=== PATIENT | female | born 1930 | race Caucasian/White ===

== ENCOUNTER 2017-03-08 11:54 | Emergency (ER) | payer MEDICARE ==
[~2017-03-08] VITALS: Ht 162.6 cm; Wt 70.0 kg
[2017-03-08 12:08] VITALS: BP 140/65; PULSE 74; RESP 18; TEMP 97.7; O2SAT 95
--- NOTE | 2017-03-08 12:51 | PD ---
HPI Chief Complaint: Fall Time Seen by Provider: 12:35 Travel History International Travel<30 days: No Contact w/Intl Traveler<30days: No Traveled to known affect area: No History of Present Illness HPI Patient is an 86-year-old female presenting to the emergency room for evaluation of a head injury after she sustained a mechanical fall around 9:30 this morning. Patient was attempting to open the blinds in her apartment, she left her walker several feet from her and walked to the window when she turned around she lost her balance and fell and hit her head. Patient pushed her life alert button to notify staff. Patient states her head is sore but denies any significant headache or visual changes. She currently lives at [facility] in the assisted living section. Her past medical history significant for hypertension, GERD, arthritis, osteoporosis, depression, hypothyroidism and Alzheimer's dementia. PFS Past Medical History Alzheimer's Disease: Yes Arthritis: Yes Depression: Yes High Cholesterol: Yes Diminished Hearing: No GERD: Yes Hypertension: Yes Medical other: Yes (osteoporosis) Immunizations Current: No Thyroid Disease: Yes (HYPOTHYROID ) Tetanus Vaccination: Unknown Influenza Vaccination: No ?: Not Social History Alcohol Use: No Tobacco Use: No Substance Use: No Allergies-Medications (Allergen,Severity, Reaction): Coded Allergies: No Known Allergies (Verified Allergy, Unknown, 03/08/17) Review of Systems Except as stated in HPI: all other systems reviewed are Neg Eyes: No: Blurred Vision, Visual changes HENT: Positive: Headaches Cardiovascular: No: Chest Pain or Discomfort Respiratory: No: Shortness of Breath Gastrointestinal: No: Abdominal Pain Genitourinary: No: Dysuria Musculoskeletal: No: Myalgias Neurologic: No: Weakness, Dizziness, Focal Abnormalities, Change in Mentation Physical Exam Narrative GENERAL: Well-developed, well-nourished, alert elderly female. Resting comfortably in no acute distress. Family at bedside. SKIN: Warm and dry. No rash, contusions, obvious lesions noted. HEAD: Atraumatic. Normocephalic. EYES: Pupils equal and round. No scleral icterus. No injection or drainage. Extra Ocular movements are intact. ENT: No nasal bleeding or discharge. Mucous membranes pink and moist. NECK: Trachea midline. No JVD. No cervical spine tenderness noted on exam. CARDIOVASCULAR: Regular rate and rhythm. 3/6 systolic murmur RESPIRATORY: No accessory muscle use. Clear to auscultation. Breath sounds equal bilaterally. GASTROINTESTINAL: Abdomen soft, non-tender, nondistended. Hepatic and splenic margins not palpable. MUSCULOSKELETAL: Extremities without clubbing, cyanosis, or edema. No obvious deformities. NEUROLOGICAL: Awake and alert. No obvious cranial nerve deficits. Motor grossly within normal limits. Five out of 5 muscle strength in the arms and legs. Normal speech. PSYCHIATRIC: Appropriate mood and affect; insight and judgment normal. Data Data Last Documented VS Vital Signs Date Time Temp Pulse Resp B/P (MAP) Pulse Ox O2 Delivery O2 Flow Rate FiO2 03/08/17 12:08 97.7 74 18 140/65 (90) 95 03/08/17 12:08 Room Air Orders Orders Ct Brain W/O Iv Contrast(Rout) (03/08/17 ) Ct Cerv Spine W/O Contrast (03/08/17 ) Acetaminophen (Tylenol) (03/08/17 14:30) MDM Medical Decision Making Medical Screen Exam Complete: Yes Emergency Medical Condition: Yes Interpretation(s) Last Impressions Head CT 03/08/17 0000 Signed Impressions: Service Date/Time: , March 08, 2017 13:41 - CONCLUSION: 1. Negative trauma CT with no evidence of hemorrhage or fracture 2. Moderate atrophic change. Juan Serrato MD Vital Signs Date Time Temp Pulse Resp B/P (MAP) Pulse Ox O2 Delivery O2 Flow Rate FiO2 03/08/17 12:08 97.7 74 18 140/65 (90) 95 03/08/17 12:08 95 Room Air 03/08/17 12:08 97.7 74 18 140/65 (90) 95 Differential Diagnosis Hemorrhage versus contusion versus concussion versus other Narrative Course Patient is an 86-year-old female that presented to the emergency department for evaluation after a fall that occurred approximately 3-4 hours ago. No obvious focal deficits noted on exam. Patient called for assistance after she fell with her life alert button. Patient's vital signs are stable, imaging ordered and pending. Family member at bedside. Ct of the brain read by radiologist shows no acute abnormality, moderate atrophic changes, CT of the cervical spine shows no fracture or dislocation. Multilevel degenerative changes area there is a 4 mm right upper lobe pulmonary nodule. This was discussed with patient and her daughter. Discussed that she should follow-up with her primary doctor for further outpatient imaging. Patient and daughter were advised regarding neurological changes and need for reassessment should she experience any changes or have any new or worsening symptoms. They both verbalized understanding of these instructions. Diagnosis Primary Impression: Fall Qualified Codes: W19.XXXA - Unspecified fall, initial encounter Additional Impression: Head injury without concussion or intracranial hemorrhage Qualified Codes: S09.90XA - Unspecified injury of head, initial encounter Referrals: Primary Care Physician 2 days Patient Instructions: General Instructions, Head Injury (ED), Neurology Instructions,ED Additional Instructions: Follow-up with your primary doctor Return to emergency department immediately for any new or worsening symptoms Always use your walker when ambulating Med/Other Pt SpecificInfo: No Change to Meds Disposition: 03 DISCHARGE TO SNF Condition: Stable Cielo Galvin Mar 08, 2017 12:51
--- NOTE | 2017-03-08 14:00 | RADRPT ---
EXAM DATE/TIME: 03/08/2017 13:41 [facility] COMPARISON: No previous studies available for comparison. INDICATIONS : Fall, hit face and forehead on floor. RADIATION DOSE: 49.33 CTDIvol (mGy) MEDICAL HISTORY : Hypertension. Dementia. SURGICAL HISTORY : None. ENCOUNTER: Initial ACUITY: 1 day PAIN SCALE: 4/10 LOCATION: cranial TECHNIQUE: Multiple contiguous axial images were obtained of the head. Using automated exposure control and adj ustment of the mA and/or kV according to patient size, radiation dose was kept as low as reasonably a chievable to obtain optimal diagnostic quality images. DICOM format image data is available electro nically for review and comparison. FINDINGS: CEREBRUM: The ventricles are normal for age with diffuse moderate atrophic change. No evidence of midline shift , mass lesion, hemorrhage or acute infarction. No extra-axial fluid collections are seen. POSTERIOR FOSSA: The cerebellum and brainstem are intact. The 4th ventricle is midline. The cerebellopontine angle i s unremarkable. EXTRACRANIAL: The visualized portion of the orbits is intact. SKULL: The calvaria is intact. No evidence of skull fracture. CONCLUSION: 1. Negative trauma CT with no evidence of hemorrhage or fracture 2. Moderate atrophic change. Juan Serrato MD on March 08, 2017 at 13:58 Board Certified Radiologist. This report was verified electronically.
--- NOTE | 2017-03-08 14:04 | RADRPT ---
EXAM DATE/TIME: 03/08/2017 13:41 [facility] COMPARISON: No previous studies available for comparison. INDICATIONS : Trauma, fall today. RADIATION DOSE: 32.88 CTDIvol (mGy) MEDICAL HISTORY : Hypertension. Dementia. SURGICAL HISTORY : None. ENCOUNTER: Initial ACUITY: 1 day PAIN SCALE: 0/10 LOCATION: neck TECHNIQUE: Volumetric scanning of the cervical spine was performed. Multiplanar reconstructions in the sagittal, coronal and oblique axial planes were performed. Using automated exposure control and adjustment o f the mA and/or kV according to patient size, radiation dose was kept as low as reasonably achievable to obtain optimal diagnostic quality images. DICOM format image data is available electronically f or review and comparison. FINDINGS: VERTEBRAE: Normal vertebral body height. ALIGNMENT: There is a curvature of the cervical spine with concavity towards the patient's left centered at C3. There is a mild retrolisthesis of C5 on C6 with mild anterolisthesis of C7 on T1. A 4 mm nodule seen within the lateral right upper lobe. C2-C3: The bony spinal canal is normal in size. No evidence of disc bulge or herniation. The neural forami na are bilaterally patent. C3-C4: There is a mild central bulge. No abutment of the cord or central canal stenosis. Neural foramina are patent bilaterally. C4-C5: There is disc space narrowing. No bulge or protrusion. Central canal are patent. Bilateral neural for aminal narrowing more pronounced on the right. C5-C6: Retrolisthesis with disc space narrowing. No significant bulge or protrusion. Bilateral neural forami nal narrowing. This is more pronounced on the right. C6-C7: The bony spinal canal is normal in size. No evidence of disc bulge or herniation. The neural forami na are bilaterally patent. C7-T1: The bony spinal canal is normal in size. No evidence of disc bulge or herniation. The neural forami na are bilaterally patent. CONCLUSION: 1. No fracture or dislocation. 2. Multilevel degenerative changes as detailed above. 3. 4 mm right upper lobe pulmonary nodule. Elie Alegria Jr., MD on March 08, 2017 at 13:58 Board Certified Radiologist. This report was verified electronically.
[2017-03-08] MEDS ORDERED: ACETAMINOPHEN 325 MG TAB PO ONE (14:30)
[2017-03-08 14:35] VITALS: BP 157/67; PULSE 70; RESP 16; O2SAT 95
--- NOTE | 2017-03-08 14:52 | PD ---
Data Data Last Documented VS Vital Signs Date Time Temp Pulse Resp B/P (MAP) Pulse Ox O2 Delivery O2 Flow Rate FiO2 03/08/17 14:48 03/08/17 14:35 70 16 95 Room Air 03/08/17 12:[address] Brain W/O Iv Contrast(Rout) (03/08/17 ) Ct Cerv Spine W/O Contrast (03/08/17 ) Acetaminophen (Tylenol) (03/08/17 14:30) MDM Supervised Visit with UHNTER: Yes Narrative Course The history, exam, and medical decision-making in the associated mid-level provider note were completed with my assistance. I reviewed and agree with the findings presented. I attest that I had a [id number] encounter with the patient on the same day, and personally performed and documented my assessment and findings in the medical record. *My assessment and Findings: Well 86-year-old woman, slip and fall. No lightheadedness or dizziness. On blood thinners. Looks well. CT negative. Outpatient follow-up. Diagnosis Primary Impression: Fall Qualified Codes: W19.XXXA - Unspecified fall, initial encounter Additional Impression: Head injury without concussion or intracranial hemorrhage Qualified Codes: S09.90XA - Unspecified injury of head, initial encounter Referrals: Primary Care Physician 2 days Patient Instructions: General Instructions, Neurology Instructions,ED, Head Injury (ED) Departure Forms: Tests/Procedures Additional Instruction: Follow-up with your primary doctor Return to emergency department immediately for any new or worsening symptoms Always use your walker when ambulating TYLENOL 325 MG PO 2 TABS GIVEN AT 1330 Disposition: 03 DISCHARGE TO SNF Condition: Stable Yamil Hammer MD Mar 08, 2017 14:52
== END 2017-03-08 14:54 ==
LOC: NEPD 11:54
DX: S09.90XA Unspecified injury of head, initial encounter (principal); G30.9 Alzheimer's disease, unspecified; E78.00 Pure hypercholesterolemia, unspecified; K21.9 Gastro-esophageal reflux disease without esophagitis; I10 Essential (primary) hypertension; M81.0 Age-related osteoporosis without current pathological fracture; E03.9 Hypothyroidism, unspecified; W18.30XA Fall on same level, unspecified, initial encounter; Y92.129 Unspecified place in nursing home as the place of occurrence of the external cause
CPT/HCPCS: 70450; 72125; 99285

== ENCOUNTER 2018-03-07 16:45 | Inpatient (IN) ==
--- NOTE | 2018-03-07 21:17 | ED ---
HPI General Chief complaint: Skin/Abscess/Foreign Body Stated complaint: Skin Irritation on Chin x3Wks/Trouble swallowing Source: family Mode of arrival: ambulatory Limitations: no limitations and other (dementia) History of Present Illness HPI narrative: 87-year-old female with known history of hypertension dyslipidemia possible arrhythmia on no anticoagulant therapy presents in the care of her daughter from local assisted living facility for evaluation of difficulty with speaking and swallowing secondary to pain and daughter concerned of new mild right lip/mouth droop that she did not notice on Sunday. According to daughter who relates most of the history as the patient has dementia approximately 3+ weeks ago daughter noticed a pustule on the right chin of the patient with localized erythema and tenderness. The daughter took the patient to a local urgent care where site was aspirated specimen was sent for culture and sensitivity and patient was started on presumptive oral antibiotics. The patient's daughter did not follow up on the culture results and does not recall the name of the antibiotics but the site seemed to improve for short while and then redness returned. Daughter noticed recurrent symptoms since Sunday and the area where the pustule had been had a small black scab and arrange for a dermatology appointment this past Sunday 2 days ago. Patient was seen by office communication professor who felt the site was consistent with a skin cancer and a biopsy for pathology was obtained. Results of the biopsy reportedly will not be available for 10-14 days patient was not restarted on oral antibiotic. Daughter last saw patient on Sunday and patient reportedly had her normal speech and her baseline dementia. Today when she checked on the patient she noticed that patient appeared to have pain with swallowing and pain with speaking and the assisted-living facility staff that they could not get her to eat or drink today secondary to patient refusing reportedly secondary to pain. No report of fever or chills. No report of cough congestion or shortness of breath. Daughter was also concerned about small amount of drooping of the corner of the right mouth but no generalized facial drooping no change in mentation no expressive or receptive aphasia complain of pain with speaking pain with swallowing area of erythema again noted at the chin and under the chin. Unable to identify specific exacerbating or alleviating factors per patient's daughter patient just answers yes or no. complaint: abscess/boil (chin x 3+ weeks ) Onset (ago): week(s) Tetanus Immunization: Unsure Location: face (chin) Severity: moderate Quality: dull Pain Consistency: intermittent Context: other (Daughter noted site on the patient's right chin area appeared to have pustule with redness was sent to urgent care started on antibiotic unknown antibiotic and culture was obtained unknown culture results areas seem to improve then brought to office communication professor this Sunday biopsy was performed biopsy results pending 10-14 days anticipate site is consistent with skin cancer patient was speaking in her normal manner on Sunday daughter did not see her on Sunday and today patient has difficulty speaking secondary to pain and painful swallowing. No stridor or hoarseness and patient denies shortness of breath.) Associated symptoms: other (Painful swallowing pain on speaking) Treatments prior to arrival: antibiotic (Within the past 3 weeks unknown antibiotic) and other (Biopsy performed by office communication professor on Sunday 2 days ago specimen collected for culture and sensitivity 3 weeks ago results unknown) Related Data Home Medications Medication Instructions Recorded Confirmed acetaminophen [Mapap 500 mg PO DAILY 03/07/18 03/07/18 (acetaminophen)] alendronate 70 mg PO QWEEK 03/07/18 03/07/18 amlodipine 5 mg PO DAILY 03/07/18 03/07/18 cholecalciferol (vitamin D3) 2,000 unit PO DAILY 03/07/18 03/07/18 [Vitamin D3] citalopram 20 mg PO DAILY 03/07/18 03/07/18 ferrous sulfate 325 mg PO DAILY 03/07/18 03/07/18 furosemide [Lasix] 20 mg PO 3XW 03/07/18 03/07/18 hydrochlorothiazide 25 mg PO DAILY 03/07/18 03/07/18 loratadine 10 mg PO DAILY 03/07/18 03/07/18 meloxicam 15 mg PO DAILY 03/07/18 03/07/18 multivitamin [Multiple Vitamins] 1 tab PO DAILY 03/07/18 03/07/18 potassium chloride [Klor-Con 10] 10 meq PO DAILY 03/07/18 03/07/18 ramipril 10 mg PO DAILY 03/07/18 03/07/18 ranitidine HCl 150 mg PO BID 03/07/18 03/07/18 Allergies Allergy/AdvReac Type Severity Reaction Status Date / Time No Known Allergies Allergy Unknown Verified 03/07/18 17:06 Review of Systems ROS: all other systems reviewed are negative (per daughter and to lesser extent patient) PMFSH History History Provided By: Family Member and Medical Record (Alzheimer's hypertension dyslipidemia hypothyroidism GERD osteopenia) Medical History Medical History Alzheimer disease (Acute) Anxiety and depression (Acute) Arthritis (Acute) GERD (gastroesophageal reflux disease) (Acute) H/O: hysterectomy (Acute) High cholesterol (Acute) Hypertension (Acute) Osteoporosis (Acute) Thyroid disease (Acute) Social History Social History Substance History: No History of Abuse Second Hand Smoke Exposure: No Smoking Status: Never smoker How Often Do You Have a Drink Containing Alcohol: Never Recent Travel in [facility] within the Last 8 Weeks: No Recent Out of Country Travel within the Last 8 Weeks: No Immunization History Tetanus Immunization: Unsure Hx Influenza Vaccine This Season: Yes Exam Narrative Exam Narrative: GENERAL: Well-nourished, well-developed patient. No acute distress no respiratory distress no stridor. SKIN: Focused skin assessment warm/dry. Attention chin mild erythema no firm induration small 1/4 cm x 1/4 cm scab no fluctuance no purulent drainage, mild submandibular tenderness and erythema no firm mass no fluctuance. HEAD: Normocephalic. EYES: No scleral icterus. No injection or drainage. ENT: Mucous membranes dry with dry blood on tongue. NECK: Supple, trachea midline. No JVD or lymphadenopathy. CARDIOVASCULAR: Regular rate and rhythm without murmurs, gallops, or rubs. RESPIRATORY: Breath sounds equal bilaterally. No accessory muscle use. GASTROINTESTINAL: Abdomen soft, non-tender, nondistended. MUSCULOSKELETAL: No cyanosis, or edema. BACK: Nontender without obvious deformity. No CVA tenderness. Course Initial Documented Vital Signs Temperature 97.5 F L 03/07/18 16:56 Pulse Rate 97 H 03/07/18 16:56 Respiratory Rate 18 03/07/18 16:56 Blood Pressure 140/63 03/07/18 16:56 Pulse Oximetry 93 L 03/07/18 16:56 Last Documented Vital Signs Temperature 97.4 F L 03/08/18 06:55 Pulse Rate 74 03/08/18 06:10 Respiratory Rate 20 03/08/18 06:10 Blood Pressure 106/52 L 03/08/18 06:10 Pulse Oximetry 94 L 03/08/18 01:19 Medical Decision Making MDM Narrative Medical decision making narrative: 87-year-old female with Alzheimer's presents with possible cellulitis abscess new drugs angina dehydration also less likely retropharyngeal abscess after course of oral antibiotic and recent biopsy of possible skin cancer by dermatology with dry mucous membranes. IV access obtained patient given bolus of normal saline maintenance IV fluids Labs resulted white count 18,000 with 80% neutrophils lactic acid is 1.0 imaging study remarkable for 1.8 x 1 subglossal soft tissue swelling/mass possible abscess per reading radiologist and by chest x-ray left lower lobe small infiltrate with pleural effusion and age-indeterminate nodule right lung base as well as CT scan on noncontrast of the brain reveals no acute intracranial process Patient discussed with on-call ENT Dr. Nuñez who concurs with initiating patient with IV antibiotics clindamycin and low-dose Decadron will see in consultation as needed per medical service request; patient's case discussed with on-call medicine Dr. Lombardo will except for admission. Patient will be admitted to stepdown unit for close observation and hydration. Medical Screen Exam Complete: Yes Emergency Medical Condition: Yes Differential Diagnosis Differential Diagnosis: Cellulitis abscess dehydration renal insufficiency; also to consider retropharyngeal abscess no findings to support peritonsillar abscess, consider tia, cva Medical Records Medical records reviewed: Yes I reviewed the patient's medical records. Lab Data Result diagrams: 03/07/18 21:20 03/07/18 21:20 Lab Results 03/07/18 03/07/18 03/07/18 Range/Units 21:20 21:20 21:26 CBC w Diff Auto diff final WBC 18.1 H (4.0-11.0) th/mm3 RBC 4.23 (4.00-5.30) mil/mm3 Hgb 13.4 (11.6-15.3) gm/dL Hct 38.8 (35.0-46.0) % MCV 91.8 (80.0-100.0) fL MCH 31.8 (27.0-34.0) pg MCHC 34.6 (32.0-36.0) % RDW 12.9 (11.6-17.2) % Plt Count 526 H (150-450) th/mm3 MPV 7.4 (7.0-11.0) fL Neut % (Auto) 82.6 H (16.0-70.0) % Lymph % (Auto) 6.7 L (9.0-44.0) % [place] % (Auto) 7.7 (0.0-8.0) % Eos % (Auto) 0.5 (0.0-4.0) % Baso % (Auto) 2.5 H (0.0-2.0) % Neut # (Auto) 14.9 H (1.8-7.7) th/mm3 Lymph # (Auto) 1.2 (1.0-4.8) th/mm3 [place] # (Auto) 1.4 H (0.0-0.9) th/mm3 Eos # (Auto) 0.1 (0.0-0.4) th/mm3 Baso # (Auto) 0.5 H (0.0-0.2) th/mm3 WBC Differential . Differential Comment . Sodium 132 L (136-145) meq/L Potassium 3.5 (3.5-5.1) meq/L Chloride 95 L (98-107) meq/L Carbon Dioxide 23.3 (21.0-32.0) meq/L Anion Gap 14 (5-15) meq/L BUN 18 (7-18) mg/dL Creatinine 0.79 (0.50-1.00) mg/dL Estimated GFR 69 L (>89) mL/min Random Glucose 83 (74-106) mg/dL Lactic Acid 1.0 (0.4-2.0) mmol/L Calcium 9.3 (8.5-10.1) mg/dL Imaging Data Radiologist's impression: Soft Tissue Neck CT 03/07/18 21:07 CONCLUSION: 1. Soft tissue fullness involving the base of the tongue to the right of midline. I cannot completely exclude a mucosal lesion. Direct visualization is suggested. 2. 1.8 x 1.1 cm oval-shaped low-density area within the floor of the mouth to the right of midline just behind the apex of the mandible. I cannot completely exclude a small abscess. 3. 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 Head CT 03/07/18 21:08 CONCLUSION: 1. No acute intracranial abnormality. 2. Atrophy. . Chest X-Ray 03/07/18 21:09 CONCLUSION: Patchy consolidation or atelectasis at the left base. There may be a mild left pleural effusion. Small nodular areas of density seen in the right midlung. Discharge Plan Discharge Disposition Patient Disposition: 30 Still Patient Discharge Condition Condition: Stable Discharge Details Diagnosis: Abscess of tongue, Dehydration, Alzheimer's dementia, Pleural effusion Physicians Team ED Provider: Roz Torres Primary Care Provider: James Granger Attending Provider: Tonja Melvin Other Providers: Kyle Nuñez Status ED Status: Admitted Patient
[2018-03-07] MEDS: Sod Chloride 0.9% Inj 1,000 ML IV.CONT SCH (21:40)
[2018-03-07 21:57] LABS: Potassium 3.5 meq/L (3.5-5.1)
[2018-03-07 21:59] LABS: Baso # (Auto) 0.5 th/mm3 (0.0-0.2); Baso % (Auto) 2.5 % (0.0-2.0); Eos # (Auto) 0.1 th/mm3 (0.0-0.4); Eos % (Auto) 0.5 % (0.0-4.0); Hematocrit 38.8 % (35.0-46.0); Hemoglobin 13.4 gm/dL (11.6-15.3); Lymph # (Auto) 1.2 th/mm3 (1.0-4.8); Lymph % (Auto) 6.7 % (9.0-44.0); Mean Corpuscular HGB Conc 34.6 % (32.0-36.0); Mean Corpuscular Hemoglobin 31.8 pg (27.0-34.0); Mean Corpuscular Volume 91.8 fL (80.0-100.0); Mean Platelet Volume 7.4 fL (7.0-11.0); Mono # (Auto) 1.4 th/mm3 (0.0-0.9); Mono % (Auto) 7.7 % (0.0-8.0); Neut # (Auto) 14.9 th/mm3 (1.8-7.7); Neut % (Auto) 82.6 % (16.0-70.0); Platelet Count 526 th/mm3 (150-450); Red Blood Count 4.23 mil/mm3 (4.00-5.30); Red Cell Distribution Width 12.9 % (11.6-17.2); White Blood Count 18.1 th/mm3 (4.0-11.0)
--- NOTE | 2018-03-07 21:59 | XR ---
EXAM DATE: 03/07/2018 9:49 PM EDT AGE/SEX: 87 years / Female INDICATIONS: Evaluate shortness of breath. CLINICAL DATA: This is the patient's initial encounter. Patient reports that signs and symptoms have been present for 1 day and indicates a pain score of 0/10. MEDICAL/SURGICAL HISTORY: Dementia. Hypertension. None. COMPARISON: No prior exams available for comparison. FINDINGS: The heart size is normal. There is patchy density seen at the left base. There are some small nodular densities in the right midlung. There is blunting of the left costophrenic angle. The right costophr enic angle is clear. CONCLUSION: Patchy consolidation or atelectasis at the left base. There may be a mild left pleural effusion. Small nodular areas of density seen in the right midlung. Electronically signed by: Jose Muro MD 03/07/2018 9:58 PM EDT
[2018-03-07 22:00] LABS: Calcium 9.3 mg/dL (8.5-10.1)
[2018-03-07] MEDS ORDERED: Sodium Chlor 0.9% Inj 250 ML IV.SIG SCH (22:00)
[2018-03-07 22:01] LABS: Carbon Dioxide 23.3 meq/L (21.0-32.0)
--- NOTE | 2018-03-07 23:04 | CT ---
EXAM DATE: 03/07/2018 10:56 PM EDT AGE/SEX: 87 years / Female INDICATIONS: Trouble swallowing. Skin irritation on chin for three weeks. Possible TIA. CLINICAL DATA: This is the patient's initial encounter. Patient reports that signs and symptoms have been present for 3 weeks and indicates a pain score of 0/10. MEDICAL/SURGICAL HISTORY: . . RADIATION DOSE: 53.72 CTDI (mGy) COMPARISON: CT of the brain 03/08/2017. TECHNIQUE: CT of the head without contrast. Using automated exposure control and adjustment of the mA and/or kV according to patient size, radiation dose was kept as low as reasonably achievable to ob tain optimal diagnostic quality images. DICOM format image data is available electronically for revi ew and comparison. FINDINGS: Cerebrum: Atrophy. The ventricles are normal for age. No evidence of midline shift, mass lesion, he morrhage or acute infarction. No extraaxial fluid collections are seen. Posterior Fossa: The cerebellum and brainstem are intact. The 4th ventricle is midline. The cerebe llopontine angle is unremarkable. Extracranial: The visualized portion of the orbits is intact. Skull: The calvaria is intact. No evidence of skull fracture. CONCLUSION: 1. No acute intracranial abnormality. 2. Atrophy. . Electronically signed by: Elie Alegria MD 03/07/2018 11:02 PM EDT
--- NOTE | 2018-03-07 23:07 | CT ---
EXAM DATE: 03/07/2018 10:56 PM EDT AGE/SEX: 87 years / Female INDICATIONS: Trouble swallowing. Skin irritation on chin for three weeks. CLINICAL DATA: This is the patient's initial encounter. Patient reports that signs and symptoms have been present for 3 weeks and indicates a pain score of 0/10. MEDICAL/SURGICAL HISTORY: . . RADIATION DOSE: 12.37 CTDI (mGy) [place] [facility] [place] 03/08/2017. . TECHNIQUE: Helical acquisition was performed using a multirow detector CT scanner during the adminis tration of 80 ml Omnipaque 350 (iohexol) nonionic water-soluble contrast as a single exam dose. Usi ng automated exposure control and adjustment of the mA and/or kV according to patient size, radiation dose was kept as low as reasonably achievable to obtain optimal diagnostic quality images. DICOM fo rmat image data is available electronically for review and comparison. FINDINGS: Nasopharynx: The nasopharyngeal airway has a normal configuration. No mucosal thickening or mass is seen. Oropharynx: There is soft tissue prominence involving the base of the tongue to the right of midline . There is an elliptical area of decreased density involving the floor the mouth just to the right of midline approaching the posterior aspects of the apex of the mandible. It measures 1.8 x 1.1 cm. The intrinsic muscles of the tongue are symmetric. The tonsillar pillars are intact. The prevertebral soft tissues are not thickened. Larynx: The supraglottic, glottic, and infraglottic structures are intact. Parapharyngeal: The parapharyngeal space is intact. Salivary Glands: The parotid and submandibular glands are intact. Lymph Nodes: No enlarged or necrotic-appearing nodes. Thyroid: Homogeneous enhancement without evidence of nodule. Bones: Unremarkable. A 4 mm noncalcified granuloma is stable within the right apex. CONCLUSION: 1. Soft tissue fullness involving the base of the tongue to the right of midline. I cannot complete ly exclude a mucosal lesion. Direct visualization is suggested. 2. 1.8 x 1.1 cm oval-shaped low-density area within the floor of the mouth to the right of midline j ust behind the apex of the mandible. I cannot completely exclude a small abscess. 3. 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 Electronically signed by: Elie Alegria MD 03/07/2018 11:06 PM EDT
[2018-03-07] MEDS ORDERED: Clindamycin 600 mg/NS Premix 600 MG/50 ML PIGGYBACK IV.SIG ONE (23:55)
[2018-03-08] MEDS ORDERED: Bisacodyl 10 MG Supp RECTAL PRN (00:08)
[2018-03-08] MEDS ORDERED: Piperacil/Tazo 3.375 GM Premix 50 ML IV.SIG ONE (00:10)
[2018-03-08] MEDS: Pantoprazole Inj 40 MG Vial IV.PUSH SCH (01:12)
[2018-03-08] MEDS: Clindamycin 900 mg/NS Premix 900 MG/50 ML PIGGYBACK IV.SIG SCH ×2 (03:14→09:35)
[2018-03-08] MEDS: amLODIPine 5 MG Tablet PO SCH (09:34)
[2018-03-08] MEDS: Sod Chloride 0.9% Inj 1,000 ML IV.CONT SCH (09:35)
--- NOTE | 2018-03-08 12:52 | P.HP ---
History of Present Illness Service: Hospitalist Primary Care Physician: James Granger MD Chief Complaint: difficulty swallowing. History of Present Illness: Ms. Alford is a pleasant 87-year-old female with a history of hypertension, dementia, osteoporosis who presents to the emergency department due to difficulty swallowing. Approximately 3 weeks ago patient fell and hit her right chin. Subsequently she developed erythema and tenderness over her right chin. She went to an urgent care and the right chin lesion was drained and patient received oral antibiotics. Her symptoms improved but later patient' s daughter noted a small black scab on her chin. She subsequently took her mother to a diabetologist where patient underwent a skin biopsy. During this time patient started having more swallowing difficulty. She did not have any fever or chills. Due to significant worsening of her swallowing problems, patient was brought to the emergency department. She was started on Levaquin and clindamycin and ENT was consulted. Patient denies any chest pain, shortness of breath, fever or chills. No changes in bowel or bladder habits. Family history: Mother had diabetes mellitus, heart disease. Sister had breast cancer. Social history: Denies using tobacco, alcohol, illicit drugs. Past medical history: Alzheimer's disease, arthritis, GERD, hypertension, hyperlipidemia. Past surgical history: Hysterectomy. - Diagnosis (1) Oral abscess (2) Alzheimer's dementia Inpatient Certification: I certify that the inpatient services were ordered in accordance with Medicare regulations governing the order. This includes certification that hospital inpatient services are reasonable and necessary and in the case of services not specified as inpatient-only under 42 CFR 419.22(n), that they are appropriately provided as inpatient services in accordance to with the 2-midnight benchmark under 43 CFR 412.3(e) Estimated Total Length of Stay (Days): 3 Plans for Post Hospital Care: SNF Review of Systems All other systems reviewed negative except as stated in HPI PMFSH - History History Provided By: Family Member - Medical History Medical History: Medical History (Last Reviewed 03/08/18 @ 08:49 by Betty Dey, NOAH) Alzheimer disease Anxiety and depression Arthritis GERD (gastroesophageal reflux disease) H/O: hysterectomy High cholesterol Hypertension Osteoporosis Thyroid disease - Tobacco History Second Hand Smoke Exposure: No Smoking Status: Never smoker - Alcohol History How Often Do You Have a Drink Containing Alcohol: Never - Substance Use History Substance History: No History of Abuse - Travel History Recent Travel in the [place] Within the Last 8 Weeks: No Recent Travel Out of the Country Within the Last 8 Weeks: No - Immunization History Tetanus Immunization: Unsure Hx Influenza Vaccine This Season: Yes Medications and Allergies Active Medications: Active Medications Al Hydroxide/Mg Hydroxide (Milk Of Magnesia Liq) 30 ml PO Q12H PRN PRN Reason: Mild Constipation Amlodipine Besylate (Norvasc) 5 mg PO DAILY [facility] Last Admin: 03/08/18 09:34 Dose: 5 mg Bisacodyl (Dulcolax Supp) 10 mg RECTAL DAILY PRN PRN Reason: SEVERE CONSITIPATION Dexamethasone Sodium Phosphate (Decadron Inj) 4 mg IV.PUSH Q12HR [facility] Last Admin: 03/08/18 09:34 Dose: 4 mg Sodium Chloride (Ns Inj) 1,000 mls @ 45 mls/hr IV.CONT .[id number] [facility] Last Admin: 03/08/18 09:35 Dose: Not Given Sodium Chloride (Ns Inj) 250 mls @ 0 mls/hr IV.SIG BOLUS [facility] Last Infusion: 03/07/18 22:16 Dose: Infused Clindamycin/Sodium Chloride (Cleocin 900 Mg/Ns Premix) 900 mg in 50 mls @ 100 mls/hr IV.SIG Q8H [facility] Last Infusion: 03/08/18 12:21 Dose: 0 mls/hr Levofloxacin/Dextrose (Levaquin 750 Mg Premix Inj) 150 mls @ 100 mls/hr IV.SIG Q36H [facility] Last Admin: 03/08/18 03:50 Dose: 100 mls/hr Lactulose (Lactulose Liq) 30 ml PO DAILY PRN PRN Reason: SEVERE CONSITIPATION Pantoprazole Sodium (Protonix Inj) 40 mg IV.PUSH Q24H [facility] Last Admin: 03/08/18 01:12 Dose: 40 mg Sennosides (Senokot) 17.2 mg PO Q12H PRN PRN Reason: Moderate Constipation Allergies Allergy/AdvReac Type Severity Reaction Status Date / Time No Known Allergies Allergy Unknown Verified 03/07/18 17:06 Home Medications Medication Instructions Recorded Confirmed Type acetaminophen [Mapap 500 mg PO DAILY 03/07/18 03/07/18 History (acetaminophen)] alendronate 70 mg PO QWEEK 03/07/18 03/07/18 History amlodipine 5 mg PO DAILY 03/07/18 03/07/18 History cholecalciferol (vitamin D3) 2,000 unit PO DAILY 03/07/18 03/07/18 History [Vitamin D3] citalopram 20 mg PO DAILY 03/07/18 03/07/18 History ferrous sulfate 325 mg PO DAILY 03/07/18 03/07/18 History furosemide [Lasix] 20 mg PO 3XW 03/07/18 03/07/18 History hydrochlorothiazide 25 mg PO DAILY 03/07/18 03/07/18 History loratadine 10 mg PO DAILY 03/07/18 03/07/18 History meloxicam 15 mg PO DAILY 03/07/18 03/07/18 History multivitamin [Multiple Vitamins] 1 tab PO DAILY 03/07/18 03/07/18 History potassium chloride [Klor-Con 10] 10 meq PO DAILY 03/07/18 03/07/18 History ramipril 10 mg PO DAILY 03/07/18 03/07/18 History ranitidine HCl 150 mg PO BID 03/07/18 03/07/18 History Exam Vital signs: Vital Signs 03/07/18 16:56 03/07/18 21:04 03/07/18 21:35 Temperature 97.5 F L Pulse Rate 97 H 86 Respiratory Rate 18 16 Blood Pressure 140/63 134/68 Pulse Oximetry 93 L 94 L 94 L 03/07/18 22:50 03/08/18 00:50 03/08/18 01:19 Temperature Pulse Rate 92 H 94 H Respiratory Rate 16 16 Blood Pressure 144/66 H 119/22 L Pulse Oximetry 94 L 92 L 94 L 03/08/18 03:08 03/08/18 04:00 03/08/18 05:00 Temperature Pulse Rate 84 76 76 Respiratory Rate 20 20 20 Blood Pressure 124/55 L 108/53 L 109/49 L Pulse Oximetry 03/08/18 06:10 03/08/18 06:55 03/08/18 07:15 Temperature 97.4 F L 98.7 F Pulse Rate 74 Respiratory Rate 20 Blood Pressure 106/52 L Pulse Oximetry 03/08/18 07:38 03/08/18 07:39 03/08/18 08:00 Temperature 97.5 F L Pulse Rate 84 82 80 Respiratory Rate 17 Blood Pressure 110/48 L Pulse Oximetry 95 96 95 03/08/18 09:00 03/08/18 09:44 03/08/18 10:00 Temperature Pulse Rate 82 82 80 Respiratory Rate 17 21 16 Blood Pressure 119/52 L 105/46 L Pulse Oximetry 94 L 94 L 94 L 03/08/18 11:00 03/08/18 12:00 03/08/18 12:28 Temperature 97.4 F L Pulse Rate 78 80 Respiratory Rate 10 L 19 Blood Pressure 110/44 L 104/47 L Pulse Oximetry 94 L 94 L Intake & Output 03/07/18 03/08/18 03/08/18 18:59 06:59 18:59 Intake Total 300 / 300 0 / 0 Balance 300 / 300 0 / 0 Weight 67 kg Intake: IV 300 / 300 Cleocin 900 mg/NS Premix 900 mg 50 / 50 In 50 ml @ 100 mls/hr IV.SIG Q8H [facility] Rx#:[id number] NS Inj 250 ML @ Wide Open IV. 250 / 250 SIG BOLUS [facility] Rx#:[id number] Oral 0 / 0 Other: Date of Last Bowel Movement 03/07/18 Narrative: GENERAL: This is a well-nourished, well-developed patient, in no apparent distress. SKIN: No rashes, ecchymoses or lesions. Warm and dry. HEAD: Atraumatic. Normocephalic. No temporal or scalp tenderness. EYES: Pupils equal round and reactive. No injection or drainage. ENT: Nose without bleeding, purulent drainage or septal hematoma. Airway patent. Oral cavity is extremely dry. No oral lesions noted. Tongue appears to be thickened. NECK: Trachea midline. No lymphadenopathy. Supple, nontender, no meningeal signs. CARDIOVASCULAR: Regular rate and rhythm without murmurs, gallops, or rubs. No JVD. RESPIRATORY: Clear to auscultation. Breath sounds equal bilaterally. No wheezes , rales, or rhonchi. GASTROINTESTINAL: Abdomen soft, non-tender, nondistended. No guarding. MUSCULOSKELETAL: Extremities without clubbing, cyanosis, or edema. NEUROLOGICAL: Awake and alert. Cranial nerves II through XII intact. No focal neurological deficits. Normal speech. Results - Labs CBC & Chem 7: 03/07/18 21:20 03/07/18 21:20 Labs: Laboratory Results - last 24 hr 0803/07/18 03/07/18 21:20 21:20 21:26 CBC w Diff Auto diff final WBC 18.1 H RBC 4.23 Hgb 13.4 Hct 38.8 MCV 91.8 MCH 31.8 MCHC 34.6 RDW 12.9 Plt Count 526 H MPV 7.4 Neut % (Auto) 82.6 H Lymph % (Auto) 6.7 L Cowley % (Auto) 7.7 Eos % (Auto) 0.5 Baso % (Auto) 2.5 H Neut # (Auto) 14.9 H Lymph # (Auto) 1.2 Cowley # (Auto) 1.4 H Eos # (Auto) 0.1 Baso # (Auto) 0.5 H WBC Differential . Differential Comment . Sodium 132 L Potassium 3.5 Chloride 95 L Carbon Dioxide 23.3 Anion Gap 14 BUN 18 Creatinine 0.79 Estimated GFR 69 L Random Glucose 83 Lactic Acid 1.0 Calcium 9.3 - Imaging Impressions Soft Tissue Neck CT 03/07/18 21:07 CONCLUSION: 1. Soft tissue fullness involving the base of the tongue to the right of midline. I cannot completely exclude a mucosal lesion. Direct visualization is suggested. 2. 1.8 x 1.1 cm oval-shaped low-density area within the floor of the mouth to the right of midline just behind the apex of the mandible. I cannot completely exclude a small abscess. 3. 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 Head CT 03/07/18 21:08 CONCLUSION: 1. No acute intracranial abnormality. 2. Atrophy. . Chest X-Ray 03/07/18 21:09 CONCLUSION: Patchy consolidation or atelectasis at the left base. There may be a mild left pleural effusion. Small nodular areas of density seen in the right midlung. Caprini VTE Risk Assessment Caprini VTE Risk Assessment: No/Low Risk (score <= 1) Caprini Risk Assessment Model: Point Value = 1 Point Value = 2 Point Value = 3 Point Value = 5 Age 41-60 Minor surgery BMI > 25 kg/m2 Swollen legs Varicose veins or History of unexplained or recurrent spontaneous Oral contraceptives or hormone replacement Sepsis (< 1 month) Serious lung disease, including pneumonia (< 1 month) Abnormal pulmonary function Acute myocardial infarction Congestive heart failure (< 1 month) History of inflammatory bowel disease Medical patient at bed rest Age 61-74 Arthroscopic surgery Major open surgery (> 45 min) Laparoscopic surgery (> 45 min) Malignancy Confined to bed (> 72 hours) Immobilizing plaster cast Central venous access Age >= 75 History of VTE Family history of VTE Factor V Leiden Prothrombin [id number] Lupus anticoagulant Anticardiolipin antibodies Elevated serum homocysteine Heparin-induced thrombocytopenia Other congenital or acquired thrombophilia Stroke (< 1 month) Elective arthroplasty Hip, pelvis, or leg fracture Acute spinal cord injury (< 1 month) Prophylaxis Regimen: Total Risk Factor Score Risk Level Prophylaxis Regimen 0-1 Low Early ambulation 2 Moderate Order ONE of the following: *Sequential Compression Device (SCD) *Heparin 5000 units SQ BID 3-4 Higher Order ONE of the following medications: *Heparin 5000 units SQ TID *Enoxaparin/Lovenox 40 mg SQ daily (WT < 150 kg, CrCl > 30 mL/min) *Enoxaparin/Lovenox 30 mg SQ daily (WT < 150 kg, CrCl > 10-29 mL/min) *Enoxaparin/Lovenox 30 mg SQ BID (WT < 150 kg, CrCl > 30 mL/min) AND/OR *Sequential Compression Device (SCD) 5 or more Highest Order ONE of the following medications: *Heparin 5000 units SQ TID (Preferred with Epidurals) *Enoxaparin/Lovenox 40 mg SQ daily (WT < 150 kg, CrCl > 30 mL/min) *Enoxaparin/Lovenox 30 mg SQ daily (WT < 150 kg, CrCl > 10-29 mL/min) *Enoxaparin/Lovenox 30 mg SQ BID (WT < 150 kg, CrCl > 30 mL/min) AND *Sequential Compression Device (SCD) Assessment and Plan - Assessment (1) Oral abscess Code(s): K12.2 - Cellulitis and abscess of mouth Status: Acute (2) Alzheimer's dementia Code(s): G30.9 - Alzheimer's disease, unspecified; F02.80 - Dementia in other diseases classified elsewhere without behavioral disturbance Status: Acute - Plan Ms. Alford is a pleasant 87-year-old female with a history of Alzheimer's dementia who was brought to the hospital due to difficulty swallowing. CT studies show 1.8 x 1.1 cm oval-shaped low-density area within the floor of the mouth to the right of midline just behind the apex of the mandible. Patient was started on IV antibiotics. ENT was consulted. Oral abscess -likely tongue abscess -We will discontinue Levaquin and clindamycin. Start Unasyn 3 g every 6 hours. Continue dexamethasone -ENT consult pending. Hypertension Hyperlipidemia Osteoporosis GERD Anxiety/depression -We will hold home medications for now. Patient's blood pressure is somewhat low. Full code. SCDs.
[2018-03-08] MEDS: Ampicillin/Sulbactam Inj 3 GM in Sodium Chloride 0.9% Inj 100 ML IV.SIG SCH ×2 (13:57→20:08)
--- NOTE | 2018-03-08 23:59 | MB ---
cc: Kyle Nuñez MD DATE: 03/08/2018 CHIEF COMPLAINT: Chin infection. HISTORY OF PRESENT ILLNESS: The patient is a pleasant 87-year-old female who noted that she fell on her chin approximately 3 weeks ago. She also subsequently went to a hull and deck remover recently and had a mass biopsied on her chin as well. There has been some swelling with this area and she was admitted to the hospital overnight. A CAT scan showed an inflammatory process and soft tissue fullness in the superficial surface near the mandible as well as floor of mouth infection. She is currently on Unasyn and low-dose Decadron. PHYSICAL EXAMINATION: On examination this evening, she is doing quite well. No shortness of breath. She asked to drink fluids. On facial examination, she has mild erythema of the anterior chin, but the neck is quite soft. The erythema is not woody in her neck. Her floor of the mouth is somewhat indurated. There is no ballotable abscess present though on palpation. There is no obvious infection. On flexible fiberoptic laryngoscopy, the airway is widely patent. ASSESSMENT AND PLAN: Facial cellulitis with involvement of the floor of the mouth. I recommend the patient continue sterile antibiotics and increasing her Decadron to 6 mg intravenous q.8 hours. I recommend watching the patient's sugars as appropriate. The patient does not need surgery currently, but strong antibiotics are necessary in order for this not to progress to an airway issue. As the patient has been stable over the last 24 hours, the patient may advance diet to fluids overnight and to soft by tomorrow at lunchtime if she continues to be stable. Thank you for this consultation. Kyle Nuñez MD [facility]/benny , 11:23 PM , 11:33 PM KIRA
[2018-03-09] MEDS: Ampicillin/Sulbactam Inj 3 GM in Sodium Chloride 0.9% Inj 100 ML IV.SIG SCH ×4 (01:46→21:22)
[2018-03-09] MEDS: Pantoprazole Inj 40 MG Vial IV.PUSH SCH (01:47)
[2018-03-09 06:43] LABS: Baso % (Auto) 0.1 % (0.0-2.0); Eos # (Auto) 0.1 th/mm3 (0.0-0.4); Eos % (Auto) 0.9 % (0.0-4.0); Hematocrit 34.3 % (35.0-46.0); Hemoglobin 11.7 gm/dL (11.6-15.3); Lymph # (Auto) 0.7 th/mm3 (1.0-4.8); Lymph % (Auto) 5.6 % (9.0-44.0); Mean Corpuscular HGB Conc 34.2 % (32.0-36.0); Mean Corpuscular Hemoglobin 31.4 pg (27.0-34.0); Mean Corpuscular Volume 91.7 fL (80.0-100.0); Mean Platelet Volume 7.3 fL (7.0-11.0); Mono # (Auto) 0.5 th/mm3 (0.0-0.9); Mono % (Auto) 4.3 % (0.0-8.0); Neut # (Auto) 11.4 th/mm3 (1.8-7.7); Neut % (Auto) 89.1 % (16.0-70.0); Platelet Count 589 th/mm3 (150-450); Red Blood Count 3.74 mil/mm3 (4.00-5.30); Red Cell Distribution Width 12.9 % (11.6-17.2); White Blood Count 12.7 th/mm3 (4.0-11.0)
[2018-03-09 07:35] LABS: Alanine Aminotransferase 15 U/L (10-53); Albumin 2.7 g/dL (3.4-5.0); Alkaline Phosphatase 106 U/L (45-117); Anion Gap 12 meq/L (5-15); Aspartate Aminotransferase 12 U/L (15-37); Blood Urea Nitrogen 18 mg/dL (7-18); Calcium 8.2 mg/dL (8.5-10.1); Chloride 103 meq/L (98-107); Glomerular Filtration Rate 83 mL/min (>89); Glucose,Random 104 mg/dL (74-106); Potassium 3.3 meq/L (3.5-5.1); Sodium 138 meq/L (136-145); Total Protein 6.8 g/dL (6.4-8.2)
[2018-03-09] MEDS: amLODIPine 5 MG Tablet PO SCH (09:51)
[2018-03-09] MEDS: Sod Chloride 0.9% Inj 1,000 ML IV.CONT SCH (13:12)
--- NOTE | 2018-03-09 13:29 | P.PN ---
Subjective Interval history: Follow up for facial cellulitis, floor of the mouth infection. Patient is currently doing well. No fever, chills. Daughter at bedside reports improvement of swelling and speech. Patient is tolerating diet well. Physical Exam Vital signs: Vital Signs 03/08/18 16:00 03/08/18 18:14 03/08/18 19:28 Temperature 98.7 F Pulse Rate Respiratory Rate Blood Pressure Pulse Oximetry 94 L 95 03/08/18 20:00 03/09/18 00:00 03/09/18 04:00 Temperature 97.2 F L 97.6 F 97.9 F Pulse Rate 84 84 76 Respiratory Rate 15 15 15 Blood Pressure 116/56 L 115/53 L 118/55 L Pulse Oximetry 95 97 96 03/09/18 05:00 03/09/18 06:00 03/09/18 07:00 Temperature Pulse Rate 78 80 78 Respiratory Rate 13 19 19 Blood Pressure Pulse Oximetry 03/09/18 07:43 03/09/18 08:00 03/09/18 09:00 Temperature Pulse Rate 78 96 H Respiratory Rate 15 20 Blood Pressure 127/60 Pulse Oximetry 94 L 03/09/18 10:00 03/09/18 11:00 03/09/18 11:10 Temperature Pulse Rate 92 H 88 90 Respiratory Rate 19 26 H 19 Blood Pressure 116/57 L Pulse Oximetry 03/09/18 12:00 Temperature Pulse Rate 92 H Respiratory Rate 24 Blood Pressure 120/55 L Pulse Oximetry Intake & Output 03/08/18 03/09/18 03/09/18 18:59 06:59 18:59 Intake Total 100 / 100 200 / 200 100 / 100 Output Total 300 / 300 Balance 100 / 100 200 / 200 -200 / -200 Weight 67.2 kg Intake: IV 100 / 100 200 / 200 100 / 100 Unasyn Inj 3 GM In NS Inj 100 100 / 100 200 / 200 100 / 100 ML @ 200 mls/hr IV.SIG Q6H [facility] Rx#:[id number] Oral 0 / 0 Output: Urine 300 / 300 Other: Post Void Residual 300 # Voids 1 Date of Last Bowel Movement 03/07/18 03/08/18 03/08/18 Narrative: GENERAL: Alert, NAD. SKIN: Warm and dry. There is mild erythema around the chin area. No drainage. HEAD: Normocephalic. EYES: No scleral icterus. No injection or drainage. NECK: Supple, trachea midline. No JVD or lymphadenopathy. CARDIOVASCULAR: Regular rate and rhythm without murmurs, gallops, or rubs. RESPIRATORY: Breath sounds equal bilaterally. No accessory muscle use. GASTROINTESTINAL: Abdomen soft, non-tender, nondistended. MUSCULOSKELETAL: No cyanosis, or edema. BACK: Nontender without obvious deformity. No CVA tenderness. Results - Labs CBC & Chem 7: 03/09/18 06:25 03/09/18 06:25 Laboratory Results - last 24 hr 03/09/18 03/09/18 06:25 06:25 CBC w Diff Auto diff final WBC 12.7 H RBC 3.74 L Hgb 11.7 Hct 34.3 L MCV 91.7 MCH 31.4 MCHC 34.2 RDW 12.9 Plt Count 589 H MPV 7.3 Neut % (Auto) 89.1 H Lymph % (Auto) 5.6 L Eddy % (Auto) 4.3 Eos % (Auto) 0.9 Baso % (Auto) 0.1 Neut # (Auto) 11.4 H Lymph # (Auto) 0.7 L Eddy # (Auto) 0.5 Eos # (Auto) 0.1 Baso # (Auto) 0.0 WBC Differential . Differential Comment . Sodium 138 Potassium 3.3 L Chloride 103 D Carbon Dioxide 23.0 Anion Gap 12 BUN 18 Creatinine 0.67 Estimated GFR 83 L Random Glucose 104 Calcium 8.2 L D Total Bilirubin 0.3 AST 12 L ALT 15 Alkaline Phosphatase 106 Total Protein 6.8 Albumin 2.7 L Microbiology 03/07/18 21:20 Blood - Peripheral Aerobic Blood Culture - Preliminary No growth in 2 days 03/07/18 21:20 Blood - Peripheral Anaerobic Blood Culture - Preliminary No growth in 2 days 03/07/18 21:26 Blood - Peripheral Aerobic Blood Culture - Preliminary No growth in 2 days 03/07/18 21:26 Blood - Peripheral Anaerobic Blood Culture - Preliminary No growth in 2 days Assessment and Plan - Assessment (1) Oral abscess Code(s): K12.2 - Cellulitis and abscess of mouth Status: Acute (2) Alzheimer's dementia Code(s): G30.9 - Alzheimer's disease, unspecified; F02.80 - Dementia in other diseases classified elsewhere without behavioral disturbance Status: Acute - Plan Ms. Alford is a pleasant 87-year-old female with a history of Alzheimer's dementia who was brought to the hospital due to difficulty swallowing. CT studies show 1.8 x 1.1 cm oval-shaped low-density area within the floor of the mouth to the right of midline just behind the apex of the mandible. Patient was started on IV antibiotics. ENT was consulted. Oral abscess -likely tongue abscess -We will continue Unasyn 3 g every 6 hours. Continue dexamethasone -Appreciate ENT evaluation. -If patient continues to do well, we will consider discharging her on Augmentin and outpatient follow up with ENT. Hypertension Hyperlipidemia Osteoporosis GERD Anxiety/depression -We will hold home BP medications for now. Patient's blood pressure is somewhat low. Full code. SCDs.
[2018-03-09] MEDS: Famotidine 20 MG Tablet PO SCH (21:23)
[2018-03-10] MEDS: Ampicillin/Sulbactam Inj 3 GM in Sodium Chloride 0.9% Inj 100 ML IV.SIG SCH ×2 (02:13→08:15)
[2018-03-10] MEDS: amLODIPine 5 MG Tablet PO SCH (08:16)
[2018-03-10] MEDS: Famotidine 20 MG Tablet PO SCH (08:16)
[2018-03-10] MEDS ORDERED: Ferrous Sulfate 325 MG Tablet PO SCH (09:00)
[2018-03-10] MEDS ORDERED: Citalopram 20 MG Tablet PO SCH (09:00)
[2018-03-10 09:36] VITALS: BP 146/67; PULSE 85; RESP 18; TEMP 96.7; O2SAT 95
--- NOTE | 2018-03-10 11:08 | P.DCO ---
- Physical Therapy Order: Evaluate and treat, Improve ambulation, Strength and gait training - Home Health Nursing Order: Medical education, Signs/symptoms of disease process, Medication education-adverse effect, Nursing assessment with vital signs - Certification I have seen patient Madeline Moore on 03/10/18. My clinical findings support the need for the requested home health care services because: Limited mobility due to disease progression, Limited ability to care for self, Need for psychosocial assistance, Impaired cognition/judgement, High risk of falls, Infection with risk of complications I certify that my clinical findings support that this patient is homebound because: Impaired cognitive ability/safety, Unsteady gait/balance, Unsafe to leave home unassisted
--- NOTE | 2018-03-10 14:08 | P.DS ---
Date of admission: 03/08/18 00:08 Primary care physician: James Granger MD Brief History from admission: Ms. Alford is a pleasant 87-year-old female with a history of hypertension, dementia, osteoporosis who presents to the emergency department due to difficulty swallowing. Approximately 3 weeks ago patient fell and hit her right chin. Subsequently she developed erythema and tenderness over her right chin. She went to an urgent care and the right chin lesion was drained and patient received oral antibiotics. Her symptoms improved but later patient' s daughter noted a small black scab on her chin. She subsequently took her mother to a security management specialist where patient underwent a skin biopsy. During this time patient started having more swallowing difficulty. She did not have any fever or chills. Due to significant worsening of her swallowing problems, patient was brought to the emergency department. She was started on Levaquin and clindamycin and ENT was consulted. Patient denies any chest pain, shortness of breath, fever or chills. No changes in bowel or bladder habits. Family history: Mother had diabetes mellitus, heart disease. Sister had breast cancer. Social history: Denies using tobacco, alcohol, illicit drugs. Past medical history: Alzheimer's disease, arthritis, GERD, hypertension, hyperlipidemia. Past surgical history: Hysterectomy. DS: Diagnosis - Discharge Diagnosis (1) Oral abscess Status: Acute (2) Alzheimer's dementia Status: Acute DS: Medications - Discharge Medications Prescriptions: amoxicillin-pot clavulanate [Augmentin] 1 tab PO Q12H #20 tab dexamethasone [Decadron] 4 mg PO Q12H #10 tab DS: Summary Hospital Course: Ms. Alford is a pleasant 87-year-old female with a history of Alzheimer's dementia who was brought to the hospital due to difficulty swallowing. CT studies show 1.8 x 1.1 cm oval-shaped low-density area within the floor of the mouth to the right of midline just behind the apex of the mandible. Patient was started on IV antibiotics. ENT was consulted. Oral abscess -likely tongue abscess -Unasyn 3 g every 6 hours. Continued dexamethasone -ENT evaluation appreciated. -Will continue Augmentin on discharge as well as Dexamethasone. Pt to follow up with PCP and possibly ENT if needed. Hypertension Hyperlipidemia Osteoporosis GERD Anxiety/depression -Continue home meds. Full code. Co - Time Spent with Patient Total time spent providing and/or coordinating discharge services: Less than 30 minutes - Quality: VTE Deep Vein Thrombosis/Pulmonary Embolism Present on Admission: No Exam Vital signs: Vital Signs 03/09/18 16:00 03/09/18 19:24 03/09/18 20:00 Temperature 96.6 F L 97.1 F L Pulse Rate 83 100 H Respiratory Rate 18 23 Blood Pressure 138/61 130/62 Pulse Oximetry 95 92 L 93 L 03/10/18 00:00 03/10/18 08:00 Temperature 97.7 F 96.7 F L Pulse Rate 86 85 Respiratory Rate 20 18 Blood Pressure 147/65 H 146/67 H Pulse Oximetry 93 L 95 Intake & Output 03/09/18 03/10/18 03/10/18 18:59 06:59 18:59 Intake Total 300 / 300 200 / 200 100 / 100 Output Total 300 / 300 Balance 0 / 0 200 / 200 100 / 100 Weight 67 kg Intake: IV 300 / 300 200 / 200 100 / 100 Unasyn Inj 3 GM In NS Inj 100 300 / 300 200 / 200 100 / 100 ML @ 200 mls/hr IV.SIG Q6H NEDRA Rx#:[id number] Output: Urine 300 / 300 Other: Date of Last Bowel Movement 03/08/18 Narrative: GENERAL: Alert, NAD. SKIN: Warm and dry. HEAD: Normocephalic. EYES: No scleral icterus. No injection or drainage. NECK: Supple, trachea midline. No JVD or lymphadenopathy. CARDIOVASCULAR: Regular rate and rhythm without murmurs, gallops, or rubs. RESPIRATORY: Breath sounds equal bilaterally. No accessory muscle use. GASTROINTESTINAL: Abdomen soft, non-tender, nondistended. MUSCULOSKELETAL: No cyanosis, or edema. BACK: Nontender without obvious deformity. No CVA tenderness. Results Procedures completed during hospitalization: None. Labs on day of discharge: Preliminary micro results at discharge 03/07/18 21:20 Aerobic Blood Culture - Preliminary Blood - Peripheral No growth in 3 days Anaerobic Blood Culture - Preliminary No growth in 3 days 03/07/18 21:26 Aerobic Blood Culture - Preliminary Blood - Peripheral No growth in 3 days Anaerobic Blood Culture - Preliminary No growth in 3 days - Impressions ITS Impressions Soft Tissue Neck CT 03/07/18 21:07 CONCLUSION: 1. Soft tissue fullness involving the base of the tongue to the right of midline. I cannot completely exclude a mucosal lesion. Direct visualization is suggested. 2. 1.8 x 1.1 cm oval-shaped low-density area within the floor of the mouth to the right of midline just behind the apex of the mandible. I cannot completely exclude a small abscess. 3. 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 Head CT 03/07/18 21:08 CONCLUSION: 1. No acute intracranial abnormality. 2. Atrophy. . Chest X-Ray 03/07/18 21:09 CONCLUSION: Patchy consolidation or atelectasis at the left base. There may be a mild left pleural effusion. Small nodular areas of density seen in the right midlung. Discharge Plan - Discharge Disposition Patient Disposition: Discharge Home - Discharge Condition Condition: Stable - Discharge Order Discharge Orders: Discharge Order (Routine); Ordered 03/10/18 Ordered By: Tonja Melvin - Discharge Details Anticipated Discharge Date: 03/10/18 - Physicians Team Primary Care Provider: James Granger Attending Provider: Tonja Melvin Other Providers: Kyle Nuñez MD
== END 2018-03-10 11:12 ==
LOC: PHED 16:45 → PHEDA 03-08 00:08 → PHICU 03-08 07:26 → PH3 03-09 14:47
PROVIDERS: ADMIT Hospitalist; ATTEND Hospitalist